=== PATIENT | male | born 1995 | race Caucasian/White ===

== ENCOUNTER 2018-02-09 17:44 | Emergency (ER) | payer OTHER, SELFPAY ==
[~2018-02-09] VITALS: Ht 185.4 cm; Wt 95.2 kg
[2018-02-09] MEDS ORDERED: Crutch1 EACH MISC (18:40)
== END 2018-02-09 18:56 | disposition home or self-care (01) ==
LOC: ER 17:44
DX: S93.402A Sprain of unspecified ligament of left ankle, initial encounter (principal); F17.220 Nicotine dependence, chewing tobacco, uncomplicated; W22.8XXA Striking against or struck by other objects, initial encounter; Y93.64 Activity, baseball
CPT/HCPCS: 29515; 73610; 99283